=== PATIENT | male | born 1985 | race Caucasian/White ===

== ENCOUNTER 2017-09-07 20:09 | Emergency (ER) | payer SELFPAY ==
[2017-09-07] MEDS ORDERED: NS 0.9% 1000 ML* 1,000 ML IV ONE (21:02)
--- NOTE | 2017-09-07 21:06 | ED ---
Syncope/Near Syncope - HPI Summary HPI Summary: This patient is a 31 year old M presenting to ED with a chief complaint of syncope at 1800. The patient was in the bathroom during onset. The episode lasted 30 seconds to 1 minute and was witnessed by his parents. The CC is described as the room was spinning. This feeling was similar to when he sits up too fast. The patient reports he was able to walk and be on his feet after the episode. The patient rates the pain 2/10 in severity. Symptoms aggravated by nothing. Symptoms alleviated by spontaneous resolution. Patient reports having trouble focusing, peripheral vision loss in the L eye for about 15-20 minutes ( currently resolved), head injury, incontinent of urine, nausea during the episode, and currently fatigued and has a CARDENAS. The patient denies fever and any possible tick bites. The patient reports he has not had any previous syncopal episodes. - History Of Current Complaint Chief Complaint: EDSyncope Time Seen by Provider: 09/07/17 20:55 Hx Obtained From: Patient Onset/Duration: Sudden Onset, Lasting Minutes, Resolved Timing: Minutes - 1 episode lasting 30 seconds to 1 minute Context: Witnessed - by his parents, Loss Of Consciousness Activity At Onset: Unknown - in the bathroom assessing his eye due to previous onset of loss of vision Aggravating Factor(s): Nothing Alleviating Factor(s): Spontaneous Resolution Associated Signs And Symptoms: Other - Patient reports having trouble focusing, peripheral vision loss in the L eye for about 15-20 minutes (currently resolved) , head injury, incontinent of urine, nausea during the episode, and currently fatigued and has a CARDENAS. The patient denies fever and any possible tick bites. - Allergies/Home Medications Allergies/Adverse Reactions: Allergies Allergy/AdvReac Type Severity Reaction Status Date / Time No Known Allergies Allergy Verified 09/07/17 20:12 Home Medications: Home Medications NK [No Home Medications Reported] 09/07/17 [History Confirmed 09/07/17] PMH/Surg Hx/FS Hx/Imm Hx Endocrine/Hematology History: Denies: Hx Diabetes Cardiovascular History: Denies: Hx Coronary Artery Disease, Hx Hypertension Infectious Disease History: No Infectious Disease History: Denies: Traveled Outside the [place] in Last 30 Days - Family History Known Family History: Negative: Cardiac Disease, Hypertension, Diabetes - Social History Alcohol Use: Rare Substance Use Type: Reports: Prescribed Smoking Status (MU): Never Smoked Tobacco Review of Systems Positive: Fatigue. Negative: Fever Positive: Other - peripheral vision loss in the L eye for about 15-20 minutes ( currently resolved) Positive: Nausea Positive: incontinence Positive: Other - head injury Positive: Other - denies any possible tick bite Neurological: Other - trouble focusing, CARDENAS, syncopal episode All Other Systems Reviewed And Are Negative: Yes Physical Exam - Summary Physical Exam Summary: VITAL SIGNS: Reviewed. GENERAL: Patient is a well-developed and nourished MALE who is lying comfortable in the stretcher. Patient is not in any acute respiratory distress. HEAD AND FACE: No signs of trauma. No ecchymosis, hematomas or skull depressions. No sinus tenderness. EYES: PERRLA, EOMI x 2, No injected conjunctiva, no nystagmus. EARS: Hearing grossly intact. Ear canals and tympanic membranes are within normal limits. MOUTH: Oropharynx within normal limits. NECK: Supple, trachea is midline, no adenopathy, no JVD, no carotid bruit, no c- spine tenderness, neck with full ROM. CHEST: Symmetric, no tenderness at palpation LUNGS: Clear to auscultation bilaterally. No wheezing or crackles. CVS: Regular rate and rhythm, S1 and S2 present, no murmurs or gallops appreciated. ABDOMEN: Soft, non-tender. No signs of distention. No rebound no guarding, and no masses palpated. Bowel sounds are normal. EXTREMITIES: FROM in all major joints, no edema, no cyanosis or clubbing. NEURO: Alert and oriented x 3. No acute neurological deficits. Speech is normal and follows commands. SKIN: Dry and warm GCS 15 Triage Information Reviewed: Yes Vital Signs On Initial Exam: Initial Vitals Temp Pulse Resp BP Pulse Ox 98.6 F 70 16 134/76 99 09/07/17 20:12 09/07/17 20:12 09/07/17 20:12 09/07/17 20:12 09/07/17 20:12 Vital Signs Reviewed: Yes Diagnostics - Vital Signs Vital Signs Temp Pulse Resp BP Pulse Ox 09/07/17 20:12 98.6 F 70 16 134/76 99 - Laboratory Result Diagrams: 09/07/17 21:22 09/07/17 21:22 Lab Statement: Any lab studies that have been ordered have been reviewed, and results considered in the medical decision making process. - CT Brain CT CT Interpretation Completed By: Radiologist - Negative unenhanced head CT. ED physician has reviewed this imaging report. - EKG 2021 Cardiac Rate: NL - 65 BPM EKG Rhythm: Sinus Rhythm EKG Interpretation: Normal axis. Normal interval. No ischemic changes. Re-Evaluation - Re-Evaluation First Eval Re-Evaluation Time: 22:18 Comment: Discussed CT and blood work results and plan for discharge. Patient is agreeable with this plan. Course/Dx Assessment/Plan: This patient is a 31 year old M presenting to ED with a chief complaint of syncope at 1800. The patient was in the bathroom during onset. In the ED course, the patient was given fluids. Upon arrival, his exam was unremarkable, his EKG, head CT, and bloodwork was also unremarkable. The patient could be syncope vs seizure. He will be D/C home with dx of syncope and was advised not to drive until he sees his PCP, a neurologist, and school superintendent. - Diagnoses Differential Diagnosis/HQI/PQRI: Positive: Other - seizure vs syncope Provider Diagnoses: Syncope Discharge - Sign-Out/Discharge Documenting (check all that apply): Patient Departure - Discharge Plan Condition: Stable Disposition: HOME Patient Education Materials: Syncope (ED) Referrals: Leelee Brown MD [Primary Care Provider] - (Please see your PCP in 1-2 days.) Leo Calero MD [Medical Doctor] - (Please see Dr. Calero in 1-2 days.) Brianna Baumann MD [Medical Doctor] - (Please see Dr. Baumann in 1-2 days.) Additional Instructions: RETURN TO THE EMERGENCY DEPARTMENT FOR CHANGING OR WORSENING SYMPTOMS. DO NOT DRIVE UNTIL SEEN BY YOUR PRIMARY CARE PHYSICIAN, DR. CALERO (ENVIRONMENTAL SERVICES COORDINATOR ), AND DR. BAUMANN (NEUROLOGIST).
[2017-09-07 21:28] LABS: ABS Basophils 0.1 10^3/ul (0-0.2); ABS Eosinophils 0.1 10^3/ul (0-0.6); ABS Monocytes 0.5 10^3/ul (0-0.8); ABS Neutrophils 6.5 10^3/ul (1.5-7.7); ABS Nucleated RBC 0 10^3/ul; Eosinophil % 1.2 % (0-6); Hematocrit 41 % (42-52); Hemoglobin 14.4 g/dl (14.0-18.0); Lymphocyte % 22.1 % (25-47); Mean Corpuscular HGB Conc 35 g/dl (31-36); Mean Corpuscular Hemoglobin 30 pg (27-31); Mean Corpuscular Volume 86 fL (80-94); Mean Platelet Volume 8.9 um3 (7.4-10.4); Nucleated Red Blood Cells % 0; Platelet Count 174 10^3/ul (150-450); Red Blood Count 4.84 10^6/ul (4.00-5.40); Red Cell Distribution Width 13 % (10.5-15); White Blood Count 9.2 10^3/ul (3.5-10.8)
[2017-09-07 21:45] LABS: EGFR Non-African American 88.8 (>60)
--- NOTE | 2017-09-07 22:02 | RAD ---
Indication: Vertigo, dizziness, syncopal episode. Comparison: No relevant prior exams available on the [facility] PACS for comparison. Technique: Noncontrast CT vertex of skull through foramen magnum. Report: The sulci, ventricles, and basal cisterns are normal for age. Crow matter white matter differentiation is preserved without evidence for edema. No intra or extra axial hemorrhage, mass, or fluid collection detected. Unremarkable visualized orbital contents. Unremarkable calvarium and skull base. Unremarkable scalp. The visualized paranasal sinuses and mastoid air spaces are clear. IMPRESSION: #. Negative unenhanced head CT.
[2017-09-07 22:18] VITALS: BP 132/84
== END 2017-09-07 23:00 | disposition home or self-care (01) ==
LOC: ED 20:09
DX: R55 Syncope and collapse (principal); H53.452 Other localized visual field defect, left eye; S09.90XA Unspecified injury of head, initial encounter; X58.XXXA Exposure to other specified factors, initial encounter; Y93.9 Activity, unspecified; Y92.9 Unspecified place or not applicable; R53.83 Other fatigue; R51 Headache; R32 Unspecified urinary incontinence; R11.0 Nausea
CPT/HCPCS: 36415; 70450; 80053; 82550; 83605; 83735; 84443; 84484; 85025; 93005; 96360; 99282